=== PATIENT | female | born 1980 | race Caucasian/White ===

== ENCOUNTER 2021-06-16 09:33 | Emergency (ER) | payer SELFPAY ==
[2021-06-16 09:49] VITALS: BP 133/93; PULSE 89; RESP 16; TEMP 36.6; O2SAT 99
--- NOTE | 2021-06-16 10:10 | ED.URI ---
HPI - URI/Sore Throat General Chief Complaint: Upper Respiratory Infection Stated Complaint: Cough/Shortness of Breath Time Seen by Provider: 06/16/21 10:10 Source: patient, family, RN notes reviewed and old records reviewed Mode of arrival: ambulatory Limitations: no limitations History of Present Illness HPI Narrative: 41-year-old female presents to [facility] with complaints of cough, sore throat,nasal drainage, some shortness of breath with activity and with cough since Monday. Patient reports she has had some chills, sweats, with body aches has not had Covid vaccination or flu vaccination, has been taking DayQuil and NyQuil for her symptoms. MD elicited complaint: cough and sore throat Onset (ago): day(s) (2) Related Data Allergies Allergy/AdvReac Type Severity Reaction Status Date / Time No Known Allergies Allergy Verified 06/16/21 09:58 Review of Systems Review of Systems: CONSTITUTIONAL: Positive for fever, chills, or sweats. EYES: Denies visual changes, redness, or discharge. ENT: Positive for rhinorrhea, congestion, positive for sore throat, no otalgia. CARDIOVASCULAR: Denies chest pain, palpitations, or edema. RESPIRATORY: Reports cough some dyspnea with activity and with cough GASTROINTESTINAL: Denies abdominal pain, nausea, vomiting, or diarrhea. GENITOURINARY: Denies dysuria or hematuria. SKIN: Denies rash or itching. MUSCULOSKELETAL: Denies back pain, joint pain,positive for body aches NEUROLOGIC: Denies any acute headache, numbness, or weakness. PSYCHIATRIC: Positive for history of anxiety or depression. All systems reviewed & are unremarkable except as noted in HPI and below [facility] Past Medical History Medical History (Updated 06/17/21 @ 00:00 by [facility] D[facility]runo) Anxiety Migraine Surgical History Surgical History (Updated 06/17/21 @ 10:29 by Shayla Ford NP) No history of previous surgery Family History Family History (Updated 06/17/21 @ 10:29 by Shayla Ford NP) Other No significant family history Social History Social History (Updated 06/17/21 @ 10:29 by Shayla Ford NP) Smoking status: Never smoker Alcohol intake: unknown Substance use: unknown Living arrangements: with family Gender identity (if verbalized by the patient): Female Comments At time of signature, agree with nursing past medical, surgical, social and family history. There is no relevant family history pertinent to the presenting complaint Exam Narrative: GENERAL: ill-appearing, well-nourished, and in no acute distress. HEAD: Normocephalic, atraumatic. EYES: PERRLA and EOMI. ENT: Nares patent with clear rhinorrhea no epistaxis. Mucous membranes moist.TM;s normale with good light reflex, throat red with no lesions or exudates no acute tonsil enlargement some post nasal drainage noted NECK: Supple.no lymphadenopathy CHEST: Clear to auscultation. No respiratory distress.frequent cough with sounds loose but is nonproductive, SAO2 99% on room air, stated HINKLE no tachypnea noted HEART: Regular rate and rhythm. No murmur heard. Normal peripheral pulses. ABDOMEN: Soft, nontender, nondistended, normal active bowel sounds. EXTREMITIES: Normal range of motion. No edema. SKIN: Warm, dry, no rash. NEURO: No focal deficits. Alert and oriented x3. Course Vital Signs Vital signs: Vital Signs Temperature 36.6 C 06/16/21 09:49 Pulse Rate 89 06/16/21 09:49 Respiratory Rate 16 06/16/21 09:49 Blood Pressure 133/93 H 06/16/21 09:49 Pulse Oximetry 99 06/16/21 09:49 Temperature 36.6 C 06/16/21 09:49 Pulse Rate 89 06/16/21 09:49 Respiratory Rate 16 06/16/21 09:49 Blood Pressure 133/93 H 06/16/21 09:49 Pulse Oximetry 99 06/16/21 09:49 MDM - URI/Sore Throat Differential Diagnosis Differential diagnosis: Likely upper respiratory infection, sinusitis, viral infection, pharyngitis and other (strep pharyngitis, acute cough) Medical Records Attestation: I reviewed the gladis
[2021-06-17 17:37] LABS: SARS-CoV-2 RNA PCR Negative
== END 2021-06-16 10:32 | disposition home or self-care (01) ==
PROVIDERS: Emergency Provider Registered Nurse
DX: J06.9 Acute upper respiratory infection, unspecified (principal); Z20.822 Contact with and (suspected) exposure to COVID-19
CPT/HCPCS: 87081; 87880; 99213; C9803; G0463; U0003; U0005